=== PATIENT | male | born 1985 | race Caucasian/White ===

== ENCOUNTER 2023-09-08 22:30 | Emergency (ER) | payer OTHER, SELFPAY ==
[2023-09-08 22:34] VITALS: PULSE 85; RESP 18; TEMP 36.6; O2SAT 97; BMI 27.0
--- NOTE | 2023-09-08 22:35 | ED.GENADULT ---
HPI - General Adult General Time Seen by Provider: 22:35 Date Seen: 09/08/23 Chief complaint: Unspecified Complaint, Adult Stated complaint: Has something stuck in his throat from eating. Time Seen by Provider: 09/08/23 22:35 Source: patient, RN notes reviewed and old records reviewed Mode of arrival: ambulatory Limitations: no limitations History of Present Illness HPI narrative: 37-year-old male who comes in with concern for esophageal food obstruction. He was eating steak and feels like it got stuck in his throat about 2 hours ago. No breathing difficulty, says he has had occasional heartburn in the past but no problems with swallowing before. Related Data Home Medications Medication Instructions Recorded Confirmed No Known Home Medications 09/08/23 09/08/23 Allergies Allergy/AdvReac Type Severity Reaction Status Date / Time No Known Drug Allergies Allergy Verified 09/08/23 22:35 PFS PFS Social History Smoking Status: Never smoker How often do you have a drink containing alcohol: monthly or less AUDIT-C Alcohol total score: 1 Non-prescribed substance use: denies use Exam Narrative: Exam Narrative: General: Well-developed and well-nourished, no acute distress Head: Atraumatic and normocephalic Eyes: Pupils are equal reactive, extraocular motions intact, conjunctiva clear ENT: External nose and ears are normal, posterior pharynx without erythema or exudate Neck: No midline cervical tenderness, full spontaneous range of motion the neck, trachea midline, no adenopathy Heart: Regular rate and rhythm no murmurs or thrills Lungs: Clear to auscultation bilaterally without wheezes or crackles Abdomen: Soft, nontender, nondistended with active bowel sounds Musculoskeletal: No tenderness, deformity, or edema Neurologic: Awake, alert, and oriented x3, no gross focal neurologic deficits, cranial nerves intact as tested Psych: Mood and affect are appropriate Skin: No rashes Const: Vital Signs, click to edit/add: Vital Signs - 24 hr 09/08/23 22:34 09/08/23 23:00 09/08/23 23:28 Temperature 97.9 F Pulse Rate [Pulse Oximeter] 85 81 Respiratory Rate 18 16 Blood Pressure [Ri ght Upper Arm] 151/97 H 137/88 Pulse Oximetry 97 97 Oxygen Delivery Me thod Room Air Room Air Course Course ED Course: Patient seen and examined, prior records are reviewed. Patient presents today with esophageal foreign body, steak. Unable to swallow liquids. Glucagon and EZ gas are ordered Reevaluation(s) Time of Reevaluation #1: 23:32 Reevaluation #1: Patient still unable to swallow after glucagon and EZ gas. Will try nitroglycerin as patient's blood pressure will tolerate this, if still unable to swallow will need EGD. Vital Signs Vital signs: Initial Vital Signs Temperature 97.9 F 09/08/23 22:34 Temperature Source Temporal Artery Scan 09/08/23 22:34 Pulse Rate 85 09/08/23 22:34 Respiratory Rate 18 09/08/23 22:34 Pulse Oximetry 97 09/08/23 22:34 Oxygen Delivery Method Room Air 09/08/23 22:34 Vital Signs Temperature 97.9 F 09/08/23 22:34 Pulse Rate 85 09/08/23 22:34 Respiratory Rate 18 09/08/23 22:34 Pulse Oximetry 97 09/08/23 22:34 Oxygen Delivery Method Room Air 09/08/23 22:34 Temperature 97.9 F 09/08/23 22:34 Pulse Rate 76 09/09/23 00:00 Respiratory Rate 16 09/09/23 00:00 Blood Pressure 117/80 09/09/23 00:00 Pulse Oximetry 99 09/09/23 00:00 Oxygen Delivery Method Room Air 09/09/23 00:00 Medications Administered Medications: Discontinued Medications Generic Name Dose Route Start Last Admin Trade Name Freq PRN Reason Stop Dose Admin Glucagon 1 mg 09/08/23 22:37 09/08/23 22:51 Glucagon,Human Recombinant 1 Mg/Ml Vial IV 09/08/23 22:38 1 mg ONCE ONE Administration Nitroglycerin 0.4 mg 09/08/23 23:19 09/08/23 23:28 Nitroglycerin 0.4 Mg Tab.Subl SUBLINGUAL 09/08/23 23:20 0.4 mg ONCE ONE Administration Pantoprazole Sodium 40 mg 09/08/23 22:37 09/08/23 22:51 Pantoprazole Sodium 40 Mg Inj IVP 09/08/23 22:38 40 mg ONCE ONE Administration Simethicone/Sodium Bicarb/Citric Ac 1 each 09/08/23 22:37 09/08/23 22:51 Simethicone/Sod Bicarb/Cit Ac 1 Each Gran.Ef.Pk PO 09/08/23 22:38 1 each ONCE ONE Administration Discharge Plan Discharge Patient Disposition: Xfer Acute [facility] Discharge Location: [facility]
[2023-09-08] MEDS: SIMETHICONE/SOD BICARB/CIT AC 1 EACH GRAN.EF.PK PO (22:51)
[2023-09-08] MEDS: PANTOPRAZOLE SODIUM 40 MG INJ IVP (22:51)
[2023-09-08] MEDS: GLUCAGON,HUMAN RECOMBINANT 1 MG/ML VIAL IV (22:51)
[2023-09-08 23:00] VITALS: BP 151/97
--- NOTE | 2023-09-08 23:24 | ED.NURSE ---
meds given,EZ gas attempted x2, no relief, tiny food particles appear to come out with EZgas fizz. notified, nitro ordered.
[2023-09-08 23:28] VITALS: BP 137/88; PULSE 81; RESP 16; O2SAT 97
[2023-09-08] MEDS: NITROGLYCERIN 0.4 MG TAB.SUBL SUBLINGUAL (23:28)
[2023-09-08 23:35] VITALS: BP 125/84; PULSE 80; RESP 16; O2SAT 98
--- NOTE | 2023-09-08 23:52 | ED.NURSE ---
post nitro, no success, pt still vomits with fluid intake. MD updated.
[2023-09-09] VITALS: BP 117/80; PULSE 76; RESP 16; O2SAT 99
--- NOTE | 2023-09-09 01:23 | ED.NURSE ---
updated [facility] on pt transfer via .
== END 2023-09-09 01:25 | disposition short-term general hospital (02) ==
PROVIDERS: Emergency Provider Family Medicine
DX: T18.128A Food in esophagus causing other injury, initial encounter (principal)
CPT/HCPCS: 96374; 99284; A9270; C9113; J1610